=== PATIENT | male | born 1970 | race Caucasian/White ===

== ENCOUNTER → 2020-03-26 11:06 | Outpatient (CLI) | payer BC, SELFPAY ==
[2020-03-26 11:41] LABS: Basophils # 0.1 K/mm3 (0-0.2); Basophils % 0.9 % (0.1-2.0); Eosinophils # 0.5 K/mm3 (0.0-0.4); Eosinophils % 4.8 % (0.1-12.0); Hematocrit 41.3 % (42.0-52.0); Lymphocytes # 2.9 K/mm3 (0.7-4.5); Lymphocytes % 29.2 % (10-50); Mean Corpuscular Hemoglobin 31.3 pg (27.0-31.2); Mean Corpuscular Volume 92.2 fl (80-94); Mean Platelet Volume 9.4 fl (7.4-10.4); Monocytes # 0.5 K/mm3 (0.1-1.0); Monocytes % 5.3 % (1.7-9.3); Neutrophils # 5.9 K/mm3 (1.8-7.8); Neutrophils % 59.9 % (37.0-80.0); Platelet Count 292 K/mm3 (142-424); Red Blood Count 4.48 M/mm3 (4.60-6.20); Red Cell Distribution Width 12.6 % (11.5-17.5); White Blood Count 9.9 K/mm3 (4.8-10.8)
[2020-03-26 21:05] LABS: Strep Scrn Group A (Rapid) Negative (Negative)
[2020-03-27 14:24] LABS: Covid-19 Nasal PCR Sendout Lex NOT DETECTED
== END ==
PROVIDERS: PCP Family Medicine; Visit Provider Nurse Practitioner
DX: Z03.818 Encounter for observation for suspected exposure to other biological agents ruled out (principal)
CPT/HCPCS: 85025; 87275; 87276; 87430; U0004

== ENCOUNTER 2020-08-05 09:53 | Emergency (ER) | payer BC, SELFPAY ==
[2020-08-05 10:06] VITALS: BP 122/60; PULSE 62; RESP 21; TEMP 36.4; O2SAT 99; BMI 27.2
--- NOTE | 2020-08-05 10:08 | HMH.EDUTC ---
[facility] [place] Clinical Impression: Exposure to COVID-19 virus Acute bronchitis Qualifiers: Bronchitis organism: other organism Qualified Code(s): J20.8 - Acute bronchitis due to other specified organisms Disposition: Home, Self-Care Condition on Discharge: Good Instructions: Acute Bronchitis, DI for Acute Bronchitis, Preventing the Spread of Coronavirus Discharge Instructions Additional Instructions: Drink plenty of fluids. Take tylenol for pain or fever. Return if you begin to have difficulty breathing. Follow up with your regular doctor. GO TO THE ER FOR ANY WORSENING SYMPTOMS Prescriptions: Doxycycline Hyclate [Doxycycline 100mg Capsule] 100 mg PO Q12 10 Days #20 cap Transmission Status: Received by [facility] # predniSONE [Prednisone 20mg Tab] 20 mg PO BID 4 Days #8 tab Transmission Status: Received by [facility] # Benzonatate [Tessalon Perle 100mg Cap] 100 mg PO TIDP PRN #30 cap PRN Reason: Cough Transmission Status: Received by [facility] # Referrals: Billy Castanon MD [Primary Care Provider] - Forms: Work/School Release Time of Disposition: 10:19 Medical Decision Making - Medical Records Medical records reviewed: No: I reviewed the patient's medical records. - Geoff Inquiry Pt receiving controlled substance: No Vital Signs: 08/05/20 10:06 08/05/20 10:28 Temperature 97.5 F L 97.8 F Temperature Source Oral Oral Pulse Rate 69 Pulse Rate [Right] 62 Respiratory Rate 21 20 Blood Pressure 119/61 Blood Pressure [Right Arm] 122/60 Blood Pressure Mean [Right Arm] 80 Blood Pressure Source [Right Arm] Automatic Cuff Blood Pressure Position [Right Arm] Sitting 02 Sat by Pulse Oximetry 99 Oxygen Delivery Method Room Air Orders (Tests/Meds): ORDERS Category Date Time Status Covid-19 Nasal PCR ([facility]) Routine Lab 08/05/20 10:07 Ordered [facility] [place] - General Stated complaint: soa, runny nose, cough Time Seen by Provider: 08/05/20 10:08 - History of Present Illness Provider Complaint: He states that for the past 2 weeks he has had a cough, sinus congestion, chest congestion. He was tested for covid and prescribed steroids last week by his pcp. He states that the covid test was negative and he has finished the steroids and he's not better. - Related Data Home Medications Medication Instructions Recorded Confirmed Potassium Chloride [Micro-K 10mEq 10 meq PO DAILY 03/26/20 cap] lisinopriL [Lisinopril 10mg Tab] 10 mg PO DAILY 03/26/20 Previous Rx's Medication Instructions Recorded Benzonatate [Tessalon Perle 100mg 100 mg PO TIDP PRN #30 cap 08/05/20 Cap] Doxycycline Hyclate [Doxycycline 100 mg PO Q12 10 Days #20 cap 08/05/20 100mg Capsule] predniSONE [Prednisone 20mg 20 mg PO BID 4 Days #8 tab 08/05/20 Tab] Allergies Allergy/AdvReac Type Severity Reaction Status Date / Time amoxicillin AdvReac Verified 08/05/20 10:14 [facility] History - Hepatitis A Screen Attestation statement:: This patient has been screened for Hepatitis A risk factors. I have reviewed the patient's past medical history: Yes Other Surgeries: Yes: Other - Social History Smoking Status: Current every day smoker Tobacco Type: cigarettes # Packs/Day (cigarettes): 1 Alcohol Intake: never Occupational Status: other Family Hx:: No significant family history ROS Obtained: Yes All systems reviewed & no additional complaints - Constitutional Constitutional: Reports chills, Denies fever(s), Reports poor appetite, Reports malaise - Eyes Eyes: Denies eye discharge - ENT Ears, Nose, Mouth, and Throat: Denies dizziness, Reports otalgia, Reports sore throat - Cardiovascular Cardiovascular: Denies chest pain - Respiratory Respiratory: Reports chest congestion, Reports cough, Denies dyspnea, Denies stridor, Denies wheezing - Gastrointestinal Gastrointestingal: Denies: abdominal pain, d
[2020-08-05 10:28] VITALS: BP 119/61; PULSE 69; RESP 20; TEMP 36.6
== END 2020-08-05 10:29 | disposition home or self-care (01) ==
PROVIDERS: Emergency Provider Nurse Practitioner Family; PCP Family Medicine
DX: Z20.822 Contact with and (suspected) exposure to COVID-19 (principal)
CPT/HCPCS: 99202; G0463; U0003

== ENCOUNTER 2021-05-10 18:58 | Emergency (ER) | payer BC, SELFPAY ==
[2021-05-10 19:20] VITALS: BP 123/93; PULSE 62; RESP 18; TEMP 37.1; O2SAT 97; BMI 23.0
--- NOTE | 2021-05-10 20:28 | HMH.EDUTC ---
[facility] [place] Disposition Clinical Impression: Finger laceration Qualifiers: Encounter type: initial encounter Finger: unspecified finger Damage to nail status: without damage Foreign body presence: without foreign body Laterality: right Qualified Code(s): S61.219A - Laceration without foreign body of unspecified finger without damage to nail, initial encounter Disposition: Home, Self-Care Condition on Discharge: Good Instructions: DI for Laceration Repair -- Finger, How to Care for a Laceration After Repair, DI for Laceration Repair -- Simple Additional Instructions: Suture/Staple instructions: You have required stitches or Dinosaur today. Please read the following instructions so you know how to care for them: 1. Keep wound area dry for the first 24 hours. 2 May clean gently with mild soap and water, after 48 hours to prevent crusting over suture knots. 3. You may shower if your provider gives permission but do not take a bath until the skin is healed.. 4. Never leave a wet dressing or Band-Aid on your stitches as this allows bacteria to reach the area and may cause infection. Band-aids can cause the wound to sweat and not recommended to wear for long periods of time Watch for signs of infection: Increasing redness, tenderness or warmth around the suture site Unusual swelling around the site Appearance of pus around each suture or any red streaks Fever If you develop any of the above signs or symptoms of infection, Follow up with Family Physician immediately 5. Suture removal in _10--14___days 6. Return to [facility] or follow up with family doctor for removal. This can be done by any medical provider during regular hours on Monday through Monday, by appointment. Referrals: Billy Castanon MD [Primary Care Provider] - As needed Forms: Work/School Release Time of Disposition: 20:31 Medical Decision Making - Geoff Inquiry Pt receiving controlled substance: No Geoff was queried for this patient: No Vital Signs: 05/10/21 19:20 Temperature 98.7 F Temperature Source Oral Pulse Rate [Left Brachial] 62 Respiratory Rate 18 Blood Pressure [Left Arm] 123/93 H Blood Pressure Mean [Left Arm] 103 Blood Pressure Source [Left Arm] Automatic Cuff Blood Pressure Position [Left Arm] Sitting 02 Sat by Pulse Oximetry 97 Oxygen Delivery Method Room Air Medical Decision Narrative: Patient states that last tetanus was about 2 yrs ago Discussed xray and patient declined states that he can move it and bend it and cut his knuckle [facility] [place] HPI - General Stated complaint: R middle finger laceration Time Seen by Provider: 05/10/21 20:28 Mode of Arrival: Ambulatory Source of Information: Patient Limitations: No Limitations Description of Symptoms (Recalled from Triage Doc. by RN): PATIENT C/O LACERATION TO RIGHT MIDDLE FINGER FROM A LAST PUTTER AWAY. STATES HE IS UP TO DATE ON TDAP HEENT Symptoms (Recalled from RN notes): No Resp Symptoms (Recalled from RN notes): No Skin Symptoms (Recalled from RN notes): Yes MS Symptoms (Recalled from RN notes): No Functional Status (Recalled from RN notes): WNL - History of Present Illness Provider Complaint: Patient states that he was using a stopper grinder earlier when it slipped and cut him on the knuckle on his right middle finger States that he immediately applied pressure and came States that he is able to bend it and move it without pain but laceration was accross the knuckle and he knew it would have trouble healing if he didnt come in - Related Data Home Medications Medication Instructions Recorded Confirmed No Known Home Medications 05/10/21 05/10/21 Allergies Allergy/AdvReac Type Severity Reaction Status Date / Time amoxicillin AdvReac Verified 08/05/20 10:14 - Worker's Comp Is this a Worker's Comp case?: No [facility] History - Hepatitis A Screen Drug use history?: No High risk sexual behaviors?: No History of sexually transmitted infection?: No Currently employed?: No 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
[2021-05-10 20:37] VITALS: BP 123/93; PULSE 62; RESP 18; TEMP 37.1; O2SAT 97
== END 2021-05-10 20:42 | disposition home or self-care (01) ==
PROVIDERS: Emergency Provider Nurse Practitioner; PCP Family Medicine
DX: S61.212A Laceration without foreign body of right middle finger without damage to nail, initial encounter (principal); W31.89XA Contact with other specified machinery, initial encounter; Y92.018 Other place in single-family (private) house as the place of occurrence of the external cause; F17.210 Nicotine dependence, cigarettes, uncomplicated
CPT/HCPCS: 12001; 99202; G0463

== ENCOUNTER 2021-10-30 20:46 | Emergency (ER) | payer BC, SELFPAY ==
[2021-10-30 20:50] VITALS: BP 141/77; PULSE 71; RESP 18; TEMP 37; O2SAT 98; BMI 25.1
--- NOTE | 2021-10-30 21:07 | HMH.EDUTC ---
[facility] [place] Disposition Clinical Impression: Dental abscess Disposition: Home, Self-Care Condition on Discharge: Good Instructions: Tooth Abscess, Clindamycin, Ibuprofen Additional Instructions: Rinse your mouth every 2 hours with salt water. This will help keep the area clean. Gently brush your teeth twice a day with a soft tooth brush. This will help keep the area clean. Eat soft foods as directed. Soft foods may cause less pain. Examples include applesauce, yogurt, and cooked pasta. Apply a warm compress Remove the compress in 10 minutes or when it becomes cool. Repeat 3 times a day. Take antibiotics as prescribed Call Dentist first thing Monday and make appointment may take you several weeks to get in Use Dental balls as directed in the [facility] Return if needed Straight to ER if any life threatening symptoms Prescriptions: clindamycin HCL [Cleocin HCl] 300 mg PO Q8H 10 Days #30 cap Transmission Status: Pending to [facility] Ibuprofen [Ibuprofen 800mg Tablet] 800 mg PO TIDP PRN #20 tab PRN Reason: Moderate Pain Transmission Status: Pending to [id number] Referrals: Billy Castanon MD [Primary Care Provider] - As needed Cem Arias [Referring] - Time of Disposition: 21:20 Medical Decision Making - Geoff Inquiry Pt receiving controlled substance: No Geoff was queried for this patient: No Vital Signs: 10/30/21 20:50 Temperature 98.6 F Temperature Source Oral Pulse Rate [Right Brachial] 71 Respiratory Rate 18 Blood Pressure [Right Arm] 141/77 H Blood Pressure Mean [Right Arm] 98 Blood Pressure Source [Right Arm] Automatic Cuff Blood Pressure Position [Right Arm] Sitting 02 Sat by Pulse Oximetry 98 Oxygen Delivery Method Room Air Orders (Tests/Meds): ED MEDICATIONS Discontinued Medications Generic Name Dose Route Start Last Admin Trade Name Freq PRN Reason Stop Dose Admin Benzocaine/Butamben/Tetracaine HCl 1 gm 10/30/21 21:02 Tetracaine/Benzocaine/Butamben 56 Gm [place] TP 10/30/21 21:03 ONCE ONE Lidocaine HCl 15 ml 10/30/21 21:02 Lidocaine 2% Viscous Pat 15ml Udc PO 10/30/21 21:03 ONCE ONE [facility] [place] HPI - General Stated complaint: Toothache Time Seen by Provider: 10/30/21 21:07 Mode of Arrival: Ambulatory Source of Information: Patient Limitations: No Limitations Description of Symptoms (Recalled from Triage Doc. by RN): PATIENT STATES HE WAS EATING THIS MORNING AND A TOOTH BROKE OFF. C/O REDNESS AND SWELLING TO LEFT SIDE FACE HEENT Symptoms (Recalled from RN notes): Yes Resp Symptoms (Recalled from RN notes): No Skin Symptoms (Recalled from RN notes): No MS Symptoms (Recalled from RN notes): No Functional Status (Recalled from RN notes): WNL - History of Present Illness Provider Complaint: Patient states he was eating this morning and his tooth broke on his left upper gum State that then earlier this evening he started having swelling in his left upper gum and jaw area and having some pain State that he has been taking Tylenol but it has not helped much so he came in before the swelling got too bad - Related Data Previous Rx's Medication Instructions Recorded Ibuprofen [Ibuprofen 800mg 800 mg PO TIDP PRN #20 tab 10/30/21 Tablet] clindamycin HCL [Cleocin HCl] 300 mg PO Q8H 10 Days #30 cap 10/30/21 Allergies Allergy/AdvReac Type Severity Reaction Status Date / Time amoxicillin AdvReac Verified 08/05/20 10:14 - Worker's Comp Is this a Worker's Comp case?: No [facility] History - Hepatitis A Screen Attestation statement:: This patient has been screened for Hepatitis A risk factors. I have reviewed the patient's past medical history: Yes Other Surgeries: Yes: Other - Social History Smoking Status: Current some day smoker Tobacco Type: cigarettes # Packs/Day (cigarettes): 0 Alcohol Intake: never Occupational Status: employed Family Hx:: No significant family history ROS Obtained: Yes All systems reviewed & no additio
[2021-10-30 21:19] VITALS: BP 141/77; PULSE 71; RESP 18; TEMP 37; O2SAT 98
== END 2021-10-30 21:31 | disposition home or self-care (01) ==
PROVIDERS: Emergency Provider Nurse Practitioner; PCP Family Medicine
DX: S02.5XXA Fracture of tooth (traumatic), initial encounter for closed fracture (principal); K04.7 Periapical abscess without sinus; R68.84 Jaw pain; F17.210 Nicotine dependence, cigarettes, uncomplicated; Z79.1 Long term (current) use of non-steroidal anti-inflammatories (NSAID); Z79.899 Other long term (current) drug therapy; Z88.0 Allergy status to penicillin; Z88.1 Allergy status to other antibiotic agents; Z88.3 Allergy status to other anti-infective agents
CPT/HCPCS: 96372; 99213; G0463

== ENCOUNTER 2021-11-02 20:31 | Emergency (ER) | payer BC, SELFPAY ==
[2021-11-02 20:33] VITALS: BP 149/90; PULSE 77; RESP 20; TEMP 36.7; O2SAT 98; BMI 23.4
--- NOTE | 2021-11-02 20:39 | CT_ITS ---
PROCEDURE INFORMATION: Exam: CT Maxillofacial With Contrast Exam date and time: 11/02/2021 9:26 PM Age: 51 years old Clinical indication: Condition or disease; Abcess; Sinuses; Additional info: Facial swelling, abscess TECHNIQUE: Imaging protocol: Computed tomography images of the face with intravenous contrast. Radiation optimization: All CT scans at this facility use at least one of these dose optimization techniques: automated exposure control; mA and/or kV adjustment per patient size (includes targeted exams where dose is matched to clinical indication); or iterative reconstruction. Contrast material: ISOVUE; Contrast volume: 75 ml; Contrast route: IV; COMPARISON: No relevant prior studies available. FINDINGS: Limitations: Patient motion. Orbital cavities: Orbits are normal. Globes are unremarkable. Bones/joints: No acute fracture. Paranasal sinuses: Moderate left maxillary sinus disease. Soft tissues: Left pre maxillary soft tissue swelling and infiltrative change. Fluid collection along the anterior left maxillary cortex measures 2 cm transverse by 0.8 cm AP by 1.9 cm cc. There is minimal periapical lucency involving the subjacent left maxillary premolar tooth. IMPRESSION: 1. Left facial soft tissue swelling and inflammatory change concerning for cellulitis. 2. Fluid collection extending along anterior left maxillary cortex measuring 2.0 x 0.8 x 1.9 cm compatible with abscess. 3. Minimal periapical lucency involving the subjacent left maxillary premolar tooth likely representing source of infection.
[2021-11-02 21:05] LABS: Chloride 102 mmol/L (98-107); Sodium 139 mmol/L (136-145)
[2021-11-02 21:06] LABS: Potassium 3.2 mmoL/L (3.5-5.1)
[2021-11-02 21:07] LABS: Basophils # 0.3 K/mm3 (0-0.2); Eosinophils # 0.3 K/mm3 (0.0-0.4); Eosinophils % 2.2 % (0.1-12.0); Hemoglobin 15.1 g/dL (14.1-18.0); Lymphocytes # 2.4 K/mm3 (0.7-4.5); Lymphocytes % 18.2 % (10-50); Mean Corpuscular HGB Conc 33.6 g/dL (31.8-35.4); Mean Corpuscular Hemoglobin 31.8 pg (27.0-31.2); Mean Corpuscular Volume 94.7 fl (80-94); Mean Platelet Volume 9.9 fl (7.4-10.4); Monocytes # 0.7 K/mm3 (0.1-1.0); Monocytes % 5.5 % (1.7-9.3); Neutrophils # 9.4 K/mm3 (1.8-7.8); Neutrophils % 72.1 % (37.0-80.0); Platelet Count 334 K/mm3 (142-424); Red Blood Count 4.75 M/mm3 (4.60-6.20); Red Cell Distribution Width 13.5 % (11.5-17.5)
[2021-11-02 21:08] LABS: Alanine Aminotransferase 28 U/L (12-78); Albumin Level 4.3 g/dl (3.5-5.0); Albumin/Globulin Ratio 1.3 (1.1-1.8); Alkaline Phosphatase 101 U/L (38-126); Anion Gap 11.2 mEq/L (5-15); Aspartate Amino Transferase 36 U/L (17-59); Bilirubin,Total 0.5 mg/dl (0.2-1.3); Blood Urea Nitrogen 7 mg/dl (9-20); Carbon Dioxide 29 mmol/L (22.0-30.0); Creatinine Clearance Estimated 84 mL/min (50-200); Estimated Glomerular Filt Rate 70 ml/min (>60); GFR (African American) 85 ML/MIN (>60); Globulin 3.3 g/dL (1.3-3.2); Total Protein,Serum 7.6 g/dl (6.3-8.2)
[2021-11-02 21:09] LABS: Glucose 134 mg/dl (74-100)
[2021-11-02 21:14] LABS: Lactic Acid 1.1 mmol/L (0.7-2.1)
--- NOTE | 2021-11-02 21:19 | HMH.EDGENADL ---
ED Disposition Clinical Impression: Facial abscess, Abscess, dental Disposition: Home, Self-Care Condition on Discharge: Fair Instructions: Tooth Abscess, DI for Dental Pain Additional Instructions: You have been evaluated for facial pain, diagnosed with a dental and facial abscess. Please continue taking antibiotics, Augmentin, as prescribed by your primary care doctor. Take Tylenol and Motrin for pain. Gaston for extreme pain. Use chlorhexidine mouthwash 3 times daily. Use ice over the area. Follow-up with [facility] as soon as available, hopefully within 24 to 48 hours. Return to the emergency department at once for any new or worsening pain, swelling, fevers, vomiting, other concerns. [address] [address] Prescriptions: Hydrocod/Acet 5/325 mg [Gaston 5/325mg tablet] 1 tab PO Q6HP PRN #6 tab PRN Reason: Severe Pain Transmission Status: Received by [facility] Chlorhexidine Gluconate 15 ml MM TID #118 ml Transmission Status: Received by [facility] Referrals: Douglas Romo MD [Primary Care Provider] - Time of Disposition: 22:37 - Critical Care Critical Care Time: No Attestation: On 11/02/21, the high probability of a clinically significant, sudden or life threatening deterioration of the following system(s) required my full and direct attention, intervention and personal management. The time I documented below is in addition to time spent performing reported procedures but includes the following listed in this critical care notation. Medical Decision Making - Medical Records Medical records reviewed: Yes: I reviewed the patient's medical records. - Geoff Inquiry Pt receiving controlled substance: No Vital Signs: 11/02/21 20:33 11/02/21 22:53 11/02/21 23:23 Temperature 98.1 F 98.4 F Temperature Source Oral Oral Pulse Rate 67 75 Pulse Rate [Right] 77 Respiratory Rate 20 19 Blood Pressure 146/93 H 139/88 Blood Pressure [Right Arm] 149/90 H Blood Pressure Mean [Right Arm] 109 02 Sat by Pulse Oximetry 98 98 Oxygen Delivery Method Room Air - Lab Data Lab Results 11/02/21 20:50: WBC 13.0 H, RBC 4.75, Hgb 15.1, Hct 45.0, MCV 94.7 H, MCH 31.8 H, MCHC 33.6, RDW 13.5, Plt Count 334, MPV 9.9, Neut % (Auto) 72.1, Lymph % (Auto) 18.2, [place] % (Auto) 5.5, Eos % (Auto) 2.2, Baso % (Auto) 2.0, Neut # (Auto) 9.4 H, Lymph # (Auto) 2.4, [place] # (Auto) 0.7, Eos # (Auto) 0.3, Baso # (Auto) 0.3 H 11/02/21 20:50: Sodium 139, Potassium 3.2 L, Chloride 102, Carbon Dioxide 29, Anion Gap 11.2, BUN 7 L, Creatinine 1.10, Estimated Creat Clear 84, Estimated GFR 70, Est GFR ( Amer) 85, Glucose 134 H, Calcium 10.0, Total Bilirubin 0.5, AST 36, ALT 28, Alkaline Phosphatase 101, Total Protein 7.6, Albumin 4.3, Globulin 3.3 H, Albumin/Globulin Ratio 1.3, Procalcitonin 0.145 11/02/21 21:00: Lactate 1.1 Result diagrams: 11/02/21 20:50 11/02/21 20:50 Orders (Tests/Meds): ED MEDICATIONS Discontinued Medications Generic Name Dose Route Start Last Admin Trade Name Freq PRN Reason Stop Dose Admin Hydrocodone Bitart/Acetaminophen 1 tab 11/02/21 22:54 11/02/21 22:57 Hydrocodone/Apap 5/325 Mg Tablet PO 11/02/21 22:55 1 tab ONCE ONE Administration Iopamidol 75 ml 11/02/21 21:36 11/02/21 21:37 Iopamidol-370 (76%);100ml Bottle IV 11/02/21 21:37 75 ml ONCE ONE Administration Ondansetron HCl 4 mg 11/02/21 22:54 11/02/21 22:57 Ondansetron 4mg Odt SL 11/02/21 22:55 4 mg ONCE ONE Administration Sodium Chloride 10 ml 11/02/21 21:36 11/02/21 21:37 Sodium Chloride 0.9% 10ml Syr (Rad Only) IV 11/02/21 21:37 10 ml ONCE ONE Administration - CT Data CT Scan: Sinus Time Received: 22:[address] Reviewed: Yes: I have reviewed the patient's CT results, I have viewed the radiologist's interpretation Preliminary Findings: Abnormal Findings Narrative: IMPRESSI
[2021-11-02 22:08] LABS: Procalcitonin 0.145 ng/mL (0.0-2.0)
--- NOTE | 2021-11-02 22:18 | PC.NURSE ---
Calling [facility] to sw/ OMFS per MD.
--- NOTE | 2021-11-02 22:20 | PC.NURSE ---
spoke w margot at this time
--- NOTE | 2021-11-02 22:29 | PC.NURSE ---
JOCELYN HESS spoke with Dr Stephens at at this time
[2021-11-02 22:53] VITALS: BP 146/93; PULSE 67; O2SAT 98
[2021-11-02 23:23] VITALS: BP 139/88; PULSE 75; RESP 19; TEMP 36.9; O2SAT 97
== END 2021-11-02 23:52 | disposition home or self-care (01) ==
LOC: ER 21:02
PROVIDERS: Emergency Provider Emergency Medicine; PCP Family Medicine
DX: M27.2 Inflammatory conditions of jaws (principal); K04.7 Periapical abscess without sinus; K02.9 Dental caries, unspecified; F17.210 Nicotine dependence, cigarettes, uncomplicated; Z79.899 Other long term (current) drug therapy; Z88.0 Allergy status to penicillin; Z88.1 Allergy status to other antibiotic agents; Z88.3 Allergy status to other anti-infective agents
CPT/HCPCS: 70487; 80053; 83605; 84145; 85025; 99285; Q9967

== ENCOUNTER 2022-04-26 18:09 | Emergency (ER) | payer BC, SELFPAY ==
[2022-04-26 19:36] VITALS: BP 126/64; PULSE 78; RESP 18; TEMP 36.8; O2SAT 98; BMI 22.5
[2022-04-26 19:44] LABS: UTC Influenza A Antigen Negative (Negative); UTC Influenza B Antigen Negative (Negative)
--- NOTE | 2022-04-26 19:46 | EXP.UTC ---
Discharge Plan Disposition Patient Disposition: Home, Self-Care Condition: Good Prescriptions Prescriptions: New ondansetron HCl 4 mg tablet 4 mg PO Q8H 4 Days Qty: 12 0RF No Action ibuprofen 800 MG tablet 800 mg PO TIDP PRN (Reason: Moderate Pain) Qty: 20 0RF ondansetron HCl 4 MG tablet 4 mg PO TIDP PRN (Reason: Nausea) sulfamethoxazole-trimethoprim 1 EACH tablet 1 tab PO BID amoxicillin-pot clavulanate 1 EACH tablet 1 tab PO BID hydrocodone-acetaminophen 1 TAB tablet 1 tab PO Q6HP PRN (Reason: Severe Pain) Qty: 6 0RF chlorhexidine gluconate 118 ML mouthwash 15 ml MM TID Qty: 118 0RF Referrals Follow up/Referrals: Billy Castanon MD [Primary Care Provider] - See instructions Activity Restrictions/Add. Instructions Additional Instructions/Restrictions: Drink extra fluids with and between meals. If you have difficulty drinking, try very small amounts of water or suck on ice chips. ? Avoid fruit juices, as these do not replace minerals and can actually increase diarrhea. ? Children and adults can use sports drinks to replenish electrolytes. Younger children and infants should use products formulated for children, like oral rehydration solutions. ? Eat food in small amounts and let your stomach recover. ? Get lots of rest. You may feel tired or weak. ? No greasy or fried foods for the next 24-48 hours BRAT diet Bananas Rice Apples and Spearfish ? Make sure to drink plenty of liquids ? Return if needed ? Straight to ER if any life threatening symptoms ? Zofran as prescribed ? You was given an outpatient order for diarrhea panel, please collect specimen and bring back to outpatient lab then call back to the [facility] or follow up with family doctor for results ? Follow up with family doctor in the next 48-72 hours if no improvement or any worsening of symptoms Clinical Impressions Clinical Impression: Viral syndrome Stand Alone Forms Stand Alone Forms: Work/School Release Instructions Patient Instructions: Nausea and Vomiting-Adult, Diarrhea, DI for Viral Syndrome Discharge ED Provider: Trina Hickman [facility] [place] HPI General Stated complaint: DA, BODY ACHES Mode of Arrival: Ambulatory Source of Information: Patient Limitations: No Limitations Time Seen by Provider: 04/26/22 19:46 Description of Symptoms (Recalled from Triage Doc. by RN): pt comes in with c/o vomitting, fever, diarrhea, body aches since last night HEENT Symptoms (Recalled from RN notes): No Resp Symptoms (Recalled from RN notes): No Skin Symptoms (Recalled from RN notes): No MS Symptoms (Recalled from RN notes): No Functional Status (Recalled from RN notes): n/a History of Present Illness Provider Complaint: Patient states that he hasnt felt well for a couple of days States that he has been having N/V/D fever chills body aches and feels like he may have the flu States that he took an at home COVID test and it was neg States that he wanted Related Data Home Medications Medication Instructions Recorded Confirmed amoxicillin 875 mg-potassium 1 tab PO BID abx 11/02/21 11/02/21 clavulanate 125 mg tablet ondansetron HCl 4 mg tablet 4 mg PO TIDP PRN Nausea 11/02/21 11/02/21 sulfamethoxazole 800 1 tab PO BID abx 11/02/21 11/02/21 mg-trimethoprim 160 mg tablet Previous Rx's Medication Instructions Recorded ibuprofen 800 mg tablet 800 mg PO TIDP PRN Moderate Pain 10/30/21 #20 tabs chlorhexidine gluconate 0.12 % 15 ml MM TID #118 mL 11/02/21 mouthwash hydrocodone 5 mg-acetaminophen 325 1 tab PO Q6HP PRN Severe Pain #6 11/02/21 mg tablet tabs ondansetron HCl 4 mg tablet 4 mg PO Q8H 4 days #12 tabs 04/26/22 Allergies Allergy/AdvReac Type Severity Reaction Status Date / Time amoxicillin AdvReac Verified 04/26/22 19:37 Worker's Comp Is this a Worker's Comp case?: No PFSH PFSH Social History (Reviewed 04/26/22 @
[2022-04-26 20:16] VITALS: BP 126/64; PULSE 78; RESP 18; TEMP 36.8
[2022-04-26 20:23] LABS: Adenovirus,PCR Not Detected (NotDetected); Bordetella Pertussis Not Detected (NotDetected); Chlamydophila Pneumoniae, PCR Not Detected (NotDetected); Coronavirus 19, PCR Not Detected (NotDetected); Coronavirus 229E Not Detected (NotDetected); Coronavirus NL63 Not Detected (NotDetected); Coronavirus OC43 Not Detected (NotDetected); Coronovirus HKU1,PCR Not Detected (NotDetected); Human Metapneumovirus Not Detected (NotDetected); Influenza A, PCR Not Detected (NotDetected); Influenza AH1, 2009 Not Detected (NotDetected); Influenza AH1, PCR Not Detected (NotDetected); Influenza AH3,PCR Not Detected (NotDetected); Influenza B, PCR Not Detected (NotDetected); Mycoplasma Pneumoniae, PCR Not Detected (NotDetected); Parainfluenza 1, PCR Not Detected (NotDetected); Parainfluenza 2, PCR Not Detected (NotDetected); Parainfluenza 3, PCR Not Detected (NotDetected); Parainfluenza 4, PCR Not Detected (NotDetected); Respiratory Syncytial Virus Not Detected (NotDetected); Rhinovirus/Enterovirus Not Detected (NotDetected)
== END 2022-04-26 20:16 | disposition home or self-care (01) ==
PROVIDERS: Emergency Provider Nurse Practitioner; PCP Family Medicine
DX: R19.7 Diarrhea, unspecified (principal); R52 Pain, unspecified; B34.9 Viral infection, unspecified
CPT/HCPCS: 87581; 87632; 87798; 87804; 99212; C9803; G0463; U0003; U0005

== ENCOUNTER → 2022-04-29 12:23 | Outpatient (CLI) | payer BC, SELFPAY ==
[2022-04-29 13:14] LABS: Basophils # 0.1 K/mm3 (0-0.2); Basophils % 1.1 % (0.1-2.0); Eosinophils # 0.3 K/mm3 (0.0-0.4); Eosinophils % 3.1 % (0.1-12.0); Hemoglobin 14.7 g/dL (14.1-18.0); Lymphocytes % 31.2 % (10-50); Mean Corpuscular HGB Conc 33.4 g/dL (31.8-35.4); Mean Corpuscular Hemoglobin 31.4 pg (27.0-31.2); Mean Corpuscular Volume 94.1 fl (80-94); Mean Platelet Volume 9.5 fl (7.4-10.4); Monocytes # 0.7 K/mm3 (0.1-1.0); Monocytes % 7.1 % (1.7-9.3); Neutrophils # 5.5 K/mm3 (1.8-7.8); Neutrophils % 57.5 % (37.0-80.0); Platelet Count 344 K/mm3 (142-424); Red Blood Count 4.68 M/mm3 (4.60-6.20); Red Cell Distribution Width 13.1 % (11.5-17.5); White Blood Count 9.6 K/mm3 (4.8-10.8)
== END ==
PROVIDERS: PCP Family Medicine; Visit Provider Family Medicine
DX: Z20.822 Contact with and (suspected) exposure to COVID-19 (principal)
CPT/HCPCS: 36415; 85025

== ENCOUNTER 2022-06-12 09:00 | Emergency (ER) | payer BC, SELFPAY ==
[2022-06-12 09:25] VITALS: BP 105/63; PULSE 76; RESP 21; TEMP 37.1; O2SAT 98; BMI 22.6
[2022-06-12 09:39] LABS: Coronavirus 19, PCR Not Detected (NotDetected); Influenza B, PCR Not Detected (NotDetected)
--- NOTE | 2022-06-12 10:00 | EXP.UTC ---
Discharge Plan Disposition Patient Disposition: Home, Self-Care Condition: Good Prescriptions Prescriptions: No Action ibuprofen 800 MG tablet 800 mg PO TIDP PRN (Reason: Moderate Pain) Qty: 20 0RF ondansetron HCl 4 mg tablet 4 mg PO Q8H 4 Days Qty: 12 0RF ondansetron HCl 4 MG tablet 4 mg PO TIDP PRN (Reason: Nausea) sulfamethoxazole-trimethoprim 1 EACH tablet 1 tab PO BID amoxicillin-pot clavulanate 1 EACH tablet 1 tab PO BID hydrocodone-acetaminophen 1 TAB tablet 1 tab PO Q6HP PRN (Reason: Severe Pain) Qty: 6 0RF chlorhexidine gluconate 118 ML mouthwash 15 ml MM TID Qty: 118 0RF Referrals Follow up/Referrals: Billy Castanon MD [Primary Care Provider] - See instructions Activity Restrictions/Add. Instructions Additional Instructions/Restrictions: covid/flu swab was sent to lab, call later today for results. self isolate until test results are known to be negative No sign of a bacterial infection. Likely viral. Viruses can take 7-14 days to run their course. Nasal saline and bulb syringe or nose Yari to remove nasal drainage to help with nasal congestion. Hard to eat, drink, sleep with nasal congestion so important to keep this cleaned out. Monitor temp. Tylenol or Motrin as needed for pain or fever Encourage fluids, water, Gatorade, Powerade, Pedialyte if infant/toddler/child Warm salt water gargles Warm fluids Sore throat lozenges Sleep elevated Humidifier/vaporizer Follow-up immediately for new or worsening symptoms or no noticeable improvement over the next 48-72 hours. Clinical Impressions Clinical Impression: Upper respiratory infection Instructions Patient Instructions: DI for Viral Upper Respiratory Infection -- Adult Discharge ED Provider: Buck ([facility])Elsa [facility] [place] HPI General Stated complaint: Dizzy, Bodyaches, headache Mode of Arrival: Ambulatory Source of Information: Patient Limitations: No Limitations Time Seen by Provider: 06/12/22 10:00 Description of Symptoms (Recalled from Triage Doc. by RN): PATIENT C/O BODY ACHES, DIZZINESS, COUGH, AND FEVER SINCE YESTERDAY HEENT Symptoms (Recalled from RN notes): No Resp Symptoms (Recalled from RN notes): Yes Skin Symptoms (Recalled from RN notes): No MS Symptoms (Recalled from RN notes): No Functional Status (Recalled from RN notes): WNL History of Present Illness Provider Complaint: 52 yr old male presnets for fever,body aches, chills,cough and dizziness since yesterday Related Data Home Medications Medication Instructions Recorded Confirmed amoxicillin 875 mg-potassium 1 tab PO BID abx 11/02/21 11/02/21 clavulanate 125 mg tablet ondansetron HCl 4 mg tablet 4 mg PO TIDP PRN Nausea 11/02/21 11/02/21 sulfamethoxazole 800 1 tab PO BID abx 11/02/21 11/02/21 mg-trimethoprim 160 mg tablet Previous Rx's Medication Instructions Recorded ibuprofen 800 mg tablet 800 mg PO TIDP PRN Moderate Pain 10/30/21 #20 tabs chlorhexidine gluconate 0.12 % 15 ml MM TID #118 mL 11/02/21 mouthwash hydrocodone 5 mg-acetaminophen 325 1 tab PO Q6HP PRN Severe Pain #6 11/02/21 mg tablet tabs ondansetron HCl 4 mg tablet 4 mg PO Q8H 4 days #12 tabs 04/26/22 Allergies Allergy/AdvReac Type Severity Reaction Status Date / Time amoxicillin AdvReac Verified 04/26/22 19:37 Worker's Comp Is this a Worker's Comp case?: No [facility] Disclaimer: The information contained in this section may have been updated after the patient was seen, as this information can be updated by other users. 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
[2022-06-12 10:10] VITALS: BP 105/63; PULSE 76; RESP 21; TEMP 37.1; O2SAT 98
[2022-06-12 10:17] LABS: Influenza A, PCR Detected (NotDetected)
== END 2022-06-12 10:15 | disposition home or self-care (01) ==
PROVIDERS: Emergency Provider Nurse Practitioner Family; PCP Family Medicine
DX: J10.1 Influenza due to other identified influenza virus with other respiratory manifestations (principal)
CPT/HCPCS: 99212; C9803; G0463; U0003; U0005

== ENCOUNTER 2023-12-08 06:00 | Outpatient (CLI) | payer BC, SELFPAY ==
--- NOTE | 2023-12-08 06:06 | CT_ITS ---
FINAL REPORT CLINICAL HISTORY: SMOKER, SCREENING 1/2 PPD X 15 YEARS FINDINGS: CTDI vol (mGy): 2.90 DLP: 100.[address] images of the chest were obtained using the low-dose protocol for screening. There is no evidence of mediastinal or hilar mass or adenopathy. No axillary mass or adenopathy is identified. On the lung window images, there is mild emphysema and mild scarring. Several nodules are seen including a 4 mm nodule in the right upper lobe on image 24 and 4 mm nodule in the left upper lobe on image 23. Several other smaller noncalcified nodules are also seen. IMPRESSION: Multiple noncalcified nodules measuring less than 5 mm. Lung RADS category 2. Recommend 12 month followup low-dose CT for further evaluation. Reviewed, Interpreted and Dictated by Kike Del Rosario III, MD Transcribed by Kymberly Chanel Authenticated and [facility]
== END 2023-12-08 23:59 | disposition home or self-care (01) ==
LOC: RAD 06:01
PROVIDERS: PCP Family Medicine; Visit Provider Family Medicine
DX: F17.210 Nicotine dependence, cigarettes, uncomplicated (principal); R91.8 Other nonspecific abnormal finding of lung field
CPT/HCPCS: 71271

== ENCOUNTER 2024-06-16 11:17 | Emergency (ER) | payer BC, SELFPAY ==
--- NOTE | 2024-06-16 11:41 | XR_ITS ---
PROCEDURE INFORMATION: Exam: XR Lumbosacral Spine Exam date and time: 06/16/2024 11:50 AM Age: 54 years old Clinical indication: Low back pain TECHNIQUE: Imaging protocol: Radiologic exam of the lumbosacral spine. Views: 2 or 3 views. COMPARISON: No relevant prior studies available. FINDINGS: Bones/joints: There is normal anatomic alignment of the lumbosacral spine. No evidence of a fracture or destructive bone lesion. There is mild chronic degenerative disc disease at L5-S1. Soft tissues: Unremarkable. IMPRESSION: Mild chronic degenerative disc disease at L5-S1, otherwise normal study.
--- NOTE | 2024-06-16 12:39 | EXP.UTC ---
Discharge Plan Disposition Patient Disposition: Home, Self-Care Condition: Good Prescriptions Prescriptions: New cyclobenzaprine 10 mg Tablet 10 mg PO BID PRN (Reason: Muscle Spasm) Qty: 20 0RF methylprednisolone 4 mg Tablets,Dose Pack 4 mg PO DIRECTED 6 Days Qty: 21 0RF Rx Instructions: Take 1 pack as directed for 6 days Referrals Follow up/Referrals: Be Cason MD [Primary Care Provider] - See instructions Activity Restrictions/Add. Instructions Additional Instructions/Restrictions: Go home and rest. It would be best if you rested tomorrow too. No heavy lifting & No twisting for the next few days. Take the oral medications as directed. The muscle relaxer (cyclobenzaprine--Flexeril) will make you drowsy, so don't drive or operate heavy machinery after taking it. Don't start the oral steroids (medrol dose pack) until tomorrow, since you had the shots in here today. Follow up with your regular doctor. GO TO THE ER FOR ANY WORSENING SYMPTOMS OR CONCERN, ESPECIALLY BOWEL OR BLADDER ISSUES, SADDLE AREA NUMBNESS, FEVER, ETC Clinical Impressions Clinical Impression: Low back pain Stand Alone Forms Stand Alone Forms: Work/School Release Instructions Patient Instructions: Low Back Pain, DI for Low Back Pain, Ketorolac Injection, Dexamethasone Injection Print Language Print Language: [place] Discharge ED Provider: Yon Crain [facility] General Stated complaint: back pain, no acc. Time Seen by Provider: 06/16/24 12:39 Related Data Previous Rx's ?Medication ?Instructions ?Recorded cyclobenzaprine 10 mg tablet 10 mg PO BID PRN Muscle Spasm #20 06/16/24 tabs methylprednisolone 4 mg tablets in 4 mg PO DIRECTED 6 days #21 tabs 06/16/24 a dose pack Allergies Allergy/AdvReac Type Severity Reaction Status Date / Time amoxicillin AdvReac Verified 04/26/22 19:37 [facility] Disclaimer: The information contained in this section may have been updated after the patient was seen, as this information can be updated by other users. 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) Smoking Status: Current some day smoker tobacco type: cigarettes packs per day: 0 alcohol intake: never current occupational status: employed Travel in the last 8 weeks: None Have you lived/traveled outside [place] in past 30 days?: No Contact w/someone who lives/traveled outside [place] past 30 days?: No Exposure to someone with infectious disease in past 14 days?: No Do you have a fever (greater than 100.4 F or 38 C)?: No Have you tested positive for COVID-19: No Exposed to someone with COVID-19 in past 14 days?: No Do you have a sore throat?: No Do you have a cough?: No Do you have any weakness?: No Do you have any diarrhea?: No Are you experiencing any unusual bleeding?: No Do you have any muscle aches/pain?: No Do you have any abdominal pain?: No Are you experiencing loss of taste or smell?: No ROS Obtained: Yes All systems reviewed & no additional complaints except as documented Constitutional Constitutional: Denies chills and Denies fever(s) Eyes Eyes: Denies eye discharge ENT Ears, Nose, Mouth, and Throat: Denies dizziness, Denies otalgia and Denies sore throat Cardiovascular Cardiovascular: Denies chest pain Respiratory Respiratory: Denies shortness of breath, Denies chest congestion, Denies cough, Denies stridor and Denies wheezing Gastrointestinal Gastrointestingal: Denies nausea or vomiting Musculoskeletal Musculoskeletal: Reports system reviewed and no additional complaints, except as documented and Denies arthralgias Integumentary/Breasts Skin/Breast: Denies rash Neurologic Neurologic: Denies dizziness and Denies paresthesias Allergic/Immunologic Allergic/Immunologic: Denies wheezing Physical Exam General General appearance: alert and in no apparent distress Head Head exam: atraumatic, normocephalic and normal inspection Eye Eye exam: Present normal appearance, PERRL and EOMI ENT ENT exam: Present normal exam, normal oropharynx, mucous membranes moist, TM's normal bilaterally and normal external ear exam Neck Neck exam: Present normal inspection, full ROM and trachea midline; Absent meningismus or lymphadenopathy Chest Chest inspection: Present normal inspection and symmetric chest wall rise; Absent tenderness Respiratory Respiratory exam: Present normal lung sounds bilaterally; Absent respiratory distress Cardiovascular Cardiovascular exam: Present regular rate and normal rhythm; Absent JVD Abdominal Exam Abdominal exam: Present soft and normal bowel sounds; Absent distention, tenderness or guarding Extremities Exam Extremities exam: Present normal inspection, full ROM and normal capillary refill; Absent calf tenderness Back Exam Back exam: Present normal inspection and full ROM; Absent tenderness, CVA tenderness (R), CVA tenderness (L), muscle spasm, paraspinal tenderness, vertebral tenderness, rashes, sciatic notch tenderness (R), sciatic notch tenderness (L), straight leg raise (R) or straight leg raise (L) Neurological Exam Neurological exam: Present alert, oriented X3, CN II-XII intact, normal gait and reflexes normal; Absent motor sensory deficit Psychiatric Psychiatric exam: Present normal affect and normal mood Skin Skin exam: Present warm, dry, intact and normal color Lymphatic Lymphatic Findings: no adenopathy Medical Decision Making Medical Records Medical records reviewed: No I reviewed the patient's medical records. Screening: Per USPSTF and CDC recommendations, given the prevalence of disease in our region, it is our hospital?s policy to screen for HIV and viral Hepatitis for all patients aged 18 and over and those with ongoing risk factors. Geoff Inquiry Pt receiving controlled substance: No Orders (Tests/Meds): ORDERS Category Date Time Status Lumbar spine XR 2-3 views [XR lumbar spine 2-3V] Stat Exams 06/16/24 11:41 Taken
[2024-06-16 12:42] VITALS: BP 145/73; PULSE 57; RESP 18; TEMP 36.6; O2SAT 98; BMI 23.4
[2024-06-16] MEDS: KETOROLAC 60MG/2ML VIAL 60 MG IM (13:00)
[2024-06-16] MEDS: DEXAMETHASONE 4MG/ML 1ML VIAL 10 MG IM (13:00)
[2024-06-16 13:07] VITALS: BP 145/73; PULSE 57; RESP 18; TEMP 36.6
== END 2024-06-16 13:16 | disposition home or self-care (01) ==
PROVIDERS: Emergency Provider Nurse Practitioner Family; PCP Family Medicine
DX: M54.50 Low back pain, unspecified (principal)
CPT/HCPCS: 72100; 99212; G0381; J1100; J1885

== ENCOUNTER 2024-08-12 10:40 | Outpatient (CLI) | payer BC, SELFPAY | END 2024-08-12 23:59 | disposition home or self-care (01) | LOC: LAB.DROPOF 08-13 09:31 | PROVIDERS: PCP Family Medicine; Visit Provider Nurse Practitioner | DX: R09.81 Nasal congestion (principal); R09.89 Other specified symptoms and signs involving the circulatory and respiratory systems; Z20.822 Contact with and (suspected) exposure to COVID-19 | CPT/HCPCS: 87635 ==